=== PATIENT | female | born 1995 | race Caucasian/White ===

== ENCOUNTER 2017-01-04 21:53 | Emergency (ER) | payer MEDICAID ==
--- NOTE | ~2017-01-04 | CT4 ---
[facility] A Service of [facility] RADIOLOGY TEXT RESULTS PATIENT: MOISÉS ORTIZ LOCATION: SED : [birth year] UNIT #: [id number] AGE: [address]: Uli Arita MD SEX: F ORDER DR: [id number] [address] [id number] E MR#: [id number] Acc #: [id number] NAME: MOISÉS ORTIZ : 1995 SEX: F STUDY DATE/TIME: 01/04/2017 23:10 UNIT: SED ROOM: STUDY DESCRIPTION: CT Abd and Pelv Wo Cont Attending Physician: Uli Arita M.D. Ordering Physician: Uli Arita M.D. Primary Care Physician: Primary Care Physician No MEDICAL IMAGING REPORT This report is preliminary unless electronic signature is present. EXAM CT abdomen and pelvis without contrast DATE: 01/04/2017 HISTORY 21-year-old female complains of right side back pain, hot flashes, right flank pain since this afternoon. History of ovarian cysts. COMPARISON CT abdomen and pelvis without contrast 11/14/2016 PROCEDURE 3 mm noncontrast axial images through the abdomen and pelvis. Enteric contrast was not administered. Sagittal and coronal reformed images were obtained. The CT exam was performed with one or more of the following radiation dose reduction techniques: automatic exposure control, adjustment of mA and/or kV according to patient size, and iterative reconstruction. Abdomen findings: Punctate nonobstructing bilateral intrarenal calculi are present. However, no ureteral calculus or hydronephrosis or perinephric inflammatory change is seen. The noncontrast appearance of the liver, gallbladder, spleen, pancreas and adrenal glands is within normal limits. Benign calcified granulomas present in the left lower lobe but the lung bases are otherwise clear. Appendix is normal. Unopacified bowel appears grossly unremarkable. Pelvis findings: Right ovarian cystic lesion measures 3.4 x 2.8 cm. Left [facility] A Service of [facility] RADIOLOGY TEXT RESULTS PATIENT: MOISÉS ORTIZ LOCATION: SED : 93 UNIT #: [id number] AGE: [address]: Uli Arita MD SEX: F ORDER DR: ovarian cyst measures 1.6 x 1.2 cm, smaller than on 11/14/2016 where it measured 2.3 x 2.0 cm. No pelvic free fluid is identified. Uterus is anteflexed. Urinary bladder is decompressed. Rectum is within normal limits. No acute osseous abnormalities are identified. IMPRESSION 1. New 3.4 x 2.8 cm right ovarian cyst in comparison to 11/14/2016. 2. 1.6 x 1.2 left ovarian cyst is smaller than on 11/14/2016. 3. No pelvic free fluid. 4. Small nonobstructing bilateral intrarenal calculi. No ureteral calculus or hydronephrosis or perinephric inflammation. 5. Normal appendix. Dictated by... Renea Eisenberg M.D. THIS IS AN ELECTRONICALLY VERIFIED REPORT Renea Eisenberg M.D. at 01/06/2017 1:51 AM [facility] TD: 01/05/2017 10:40 JOB #: [id number] MEDICAL IMAGING REPORT
[~2017-01-04 21:53] MED LIST: BACTRIM DS TABL1 TA1 PO; CIPRO250 M1 PO; HYDROCODON-ACE1 EAC7 PO; KEPPRA500 M2 PO; NO MEDICATIONS; PHENERGAN25 M1 PO; PYRIDIUM PO; SUDAFED PO; ZOFRAN ODT4 MG PO
[2017-01-04 22:18] LABS: BASOPHIL# 0.1 X10e3 (0-0.3); BASOPHIL% 0.8 % (0-2.5); EOSINOPHIL# 0.1 X10e3 (0-0.7); EOSINOPHIL% 1.8 % (0.0-7.0); HEMATOCRIT 41.4 % (35.0-45.0); HEMOGLOBIN 14.2 gm/dL (12.0-16.0); LYMPHOCYTE# 2.1 X10e3 (1.0-3.5); MEAN CELL VOLUME 82.7 FL (83-96); MEAN CORPUSCULAR HEMOGLOBIN 28.4 PG (28-34); MEAN CORPUSCULAR HGB CONC 34.3 g/dL (30-36); MEAN PLATELET VOLUME 8.6 FL (6.5-11.5); MONOCYTE# 0.6 X10e3 (0-1.0); MONOCYTE% 7.9 % (3.0-12.0); NEUTROPHIL# 4.4 X10e3 (1.5-7.1); NEUTROPHIL% 60.5 % (40-75); PLATELET COUNT 229 X10e3 (140-420); RED BLOOD COUNT 5.01 X10e (3.90-5.30); RED CELL DISTRIBUTION WIDTH 12.9 % (11.0-15.5); WHITE BLOOD COUNT 7.2 X10e3 (4.0-10.5)
[2017-01-04 22:21] LABS: DIFF IND NO
[2017-01-04 22:36] LABS: ALBUMIN SERUM 4.2 g/dL (3.5-5.0); ALKALINE PHOSPHATASE 74 U/L (32-92); ALT (SGPT) 15 U/L (10-40); AST (SGOT) 16 U/L (10-42); BILIRUBIN,TOTAL 0.6 mg/dL (0.2-2.0); BLOOD UREA NITROGEN 8 mg/dL (9-23); BUN/CREATININE RATIO 13.33; CALCIUM SERUM 9.3 mg/dL (8.4-10.2); CARBON DIOXIDE 26 mmol/L (22-31); CHLORIDE 106 mmol/L (100-111); CREATININE SERUM 0.6 mg/dL (0.6-1.4); GLOM FILT RATE Estimated ABOVE60 mL/min (>60); GLUCOSE FASTING 97 mg/dL (70-110); LIPASE 26 U/L (22-51); POTASSIUM 3.2 mmol/L (3.5-5.1); SODIUM 137 mmol/L (135-145)
[2017-01-04 22:37] LABS: BILIRUBIN, DIRECT <0.1 mg/dL (0.0-0.2); BILIRUBIN,INDIRECT 0.5 mg/dL (0.0-0.9)
[2017-01-04 23:11] LABS: URINE SOURCE CLEAN CATCH
[2017-01-04 23:14] LABS: URINE APPEARANCE HAZY; URINE BILIRUBIN NEG (NEG); URINE BLOOD 1+ (NEG); URINE COLOR YELLOW; URINE GLUCOSE NEG (NORM); URINE KETONE NEG (NEG); URINE LEUKOCYTE ESTERASE TRACE (NEG); URINE NITRATE POS (NEG); URINE PH 5.5 (5-8); URINE PROTEIN NEG (NEG); URINE SPECIFIC GRAVITY 1.025 (1.003-1.035); URINE UROBILINOGEN 0.2 MG/DL (NORM)
[2017-01-04 23:15] LABS: MICRO INDICATED? YES
[2017-01-04 23:17] LABS: CULTURE INDICATED? YES; URINE BACTERIA 2+ (NEG); URINE SQUAMOUS EPITHELIAL CELL OCCAS /[HPF]; URINE TRANSITIONAL EPI CELLS FEW /[HPF]
== END 2017-01-05 00:22 | disposition home or self-care (01) ==
LOC: SED 21:53
PROVIDERS: Emergency Medicine
DX: N83.202 Unspecified ovarian cyst, left side (principal); N83.201 Unspecified ovarian cyst, right side; R10.9 Unspecified abdominal pain; F17.200 Nicotine dependence, unspecified, uncomplicated
CPT/HCPCS: 36415; 74176; 80048; 80076; 81003; 83690; 84703; 85025; 87086; 87088; 87186; 96361; 96374; 96375; 99284; J1885; J2405